=== PATIENT | female | born 1955 | race Caucasian/White ===

== ENCOUNTER 2023-09-04 13:56 | Emergency (ER) | payer OTHER ==
[~2023-09-04] VITALS: Ht 152.4 cm; Wt 65.8 kg
[~2023-09-04 13:56] MED LIST: ASPI-1822 PO; LOSA1TAB PO; MECL-231 PO; OMEP20EC11 PO
[2023-09-04 14:16] VITALS: BP 111/63; PULSE 75; RESP 16; TEMP 98; O2SAT 100
[2023-09-04] MEDS ORDERED: ACETAMINOPHEN 325 MG TAB PO ONE (15:30)
== END 2023-09-04 17:35 | disposition home or self-care (01) ==
LOC: MED 13:56
DX: L53.8 Other specified erythematous conditions (principal); M79.89 Other specified soft tissue disorders; I10 Essential (primary) hypertension; Z88.5 Allergy status to narcotic agent; Z88.8 Allergy status to other drugs, medicaments and biological substances; Z79.899 Other long term (current) drug therapy
CPT/HCPCS: 73590; 93971; 99284; Q0092